=== PATIENT | male | born 1995 | race Caucasian/White ===

== ENCOUNTER 2017-10-18 12:28 | Outpatient (CLI) | payer OTHER ==
--- NOTE | 2017-10-18 20:13 | MRI Report ---
Reason: UNSPECIFIED INJURY OF UNSPECIFIED WRIST, HAND FI Procedure Date: 10/18/2017 Accession Number: [id number] / [id number] Procedure: MRI - Finger(s) RT W/O CPT Code: 58949 FULL RESULT: EXAM: RIGHT HAND FOURTH DIGIT MR WITHOUT CONTRAST EXAM DATE: 10/18/2017 01:45 PM. CLINICAL HISTORY: Dog bite fourth digit with swelling. COMPARISON: No priors. TECHNIQUE: Multiplanar, multisequence T1-weighted and fluid-sensitive sequences of the finger without contrast. Other: None. FINDINGS: Bones: No fractures or subluxations. No marrow edema. No bone lesions. Cartilage: The articular cartilage is unremarkable. Ligaments: The radial and ulnar collateral ligaments are intact. Tendons: Focal area of T2 hyperintensity deep to the fourth finger flexor tendon just proximal to the PIP joint. Tendon itself is intact. There is also trace fluid in the tendon sheath at this level. Musculature: No edema or fatty atrophy. Other: No joint effusions or capsular rupture. The subcutaneous tissues are unremarkable. IMPRESSION: 1. Focal deep peritendinous edema fourth finger proximal phalanx just proximal to the PIP joint with trace fluid. Raises concern for tendon sheath infection in the setting of an animal bite. [facility] MUSCULOSKELETAL RADIOLOGY SECTION
== END 2017-10-18 12:29 | disposition home or self-care (01) ==
LOC: DI 12:28
PROVIDERS: ATTEND Nurse Practitioner Family
DX: S61.254A Open bite of right ring finger without damage to nail, initial encounter (principal); R60.0 Localized edema